=== PATIENT | female | born 1985 | race Caucasian/White ===

== ENCOUNTER 2020-10-04 16:02 | Emergency (ER) | payer OTHER, SELFPAY ==
[2020-10-04 16:26] VITALS: BP 113/70; PULSE 80; RESP 18; TEMP 37.1; O2SAT 100
--- NOTE | 2020-10-04 16:41 | ED.FEMALEGU ---
HPI - Female Genitourinary General Chief complaint: Urogenital-Female Stated complaint: abd pain Time Seen by Provider: 10/04/20 16:41 History of Present Illness HPI Narrative: Patient complains patient complains of burning with urination and frequency same as several prior urinary tract infections, this is been going on for 2 days No fever no vomiting no nausea no abdominal pain no pelvic pain or back pain Related Data Previous Rx's Medication Instructions Recorded nitrofurantoin monohyd/m-cryst 100 mg PO Q12H 5 Days #10 cap 10/04/20 [Macrobid] phenazopyridine [Pyridium] 200 mg PO TID PRN #6 tab 10/04/20 Allergies Allergy/AdvReac Type Severity Reaction Status Date / Time No Known Allergies Allergy Verified 10/04/20 16:25 [No Known Allergies*] Review of Systems Review of Systems: Positive for dysuria Negatives are no fever no chills no disease no weakness no fainting no feeling faint no neck pain no chest pain no abdominal pain no flank pain no back pain no nausea no vomiting no diarrhea Yes all other systems are reviewed and are negative [facility] Past Medical History Source: nursing notes reviewed Social History Social History Advance Directives: No Advance Directives Information Provided: No Physical Exam Vital Signs: Vital Signs: Last Vital Signs Temp 98.8 F 10/04/20 16:26 Pulse 80 10/04/20 16:26 Resp 18 10/04/20 16:26 BP 113/70 10/04/20 16:26 Pulse Ox 100 10/04/20 16:26 Body Mass Index 30.0 General appearance is no acute distress Head is normocephalic atraumatic Neck is supple Respiratory no distress Abdomen soft nontender The back no CVA tenderness Extremities no edema no rash Course Course Course Narrative: Patient in history and Physical make UTI very likely despite no conclusive evidence on urinalysis so patient was treated for probable urinary tract infection She is well appearing and discharged home MDM - Female Genitourinary Lab Data Attestation: I reviewed the patient's lab results. Labs: Lab Results 10/04/20 10/04/20 Range/Units 16:59 16:59 Urine Color YELLOW Urine Appearance HAZY Urine pH 6.0 (5.0-8.0) Ur Specific [place] 1.025 (1.005-1.025) Urine Protein TRACE (NEG-TRACE) MG/DL Urine Glucose (UA) NEG (NEG) MG/DL Urine Ketones NEG (NEG) MG/DL Urine Blood 2+ H (NEG) Urine Nitrite POS H (NEG) Ur Leukocyte Esterase TRACE H (NEG) Urine RBC 10-14 H (0) /HPF Urine WBC 1-4 (0-4) /HPF Ur Squamous Epith Cells 1+ /LPF Urine Bacteria 2+ /LPF Urine Test NEGATIVE (NEGATIVE) Discharge Plan Discharge Clinical Impression: Urinary tract infection Patient Disposition: Home, Self-Care Additional Instructions: Because her symptoms described a urinary tract infection we are treating with Macrobid antibiotic and Pyridium which relieves discomfort in the urine Return any time for fever vomiting or pain, any worse condition or any concerns Prescriptions: New phenazopyridine [Pyridium] 200 mg tablet 200 mg PO TID PRN (Reason: Discomfort with urination) Qty: 6 RF: 0 nitrofurantoin monohyd/m-cryst [Macrobid] 100 mg capsule 100 mg PO Q12H 5 Days Qty: 10 RF: 0 Stand Alone Forms: Work/School Release Interventions: ED Discharge Assessment Last Done: 10/04/20 18:37 Discharge Date/Time: 10/04/20 18:37
[2020-10-04 17:58] LABS: Glucose Urine UA NEG (NEG); Leukocyte Esterase Urine TRACE (NEG); Nitrite Urine POS (NEG); Specific Gravity - Urine 1.025 (1.005-1.025); UACC Culture Trigger YES; Urine Blood 2+ (NEG); Urine Ketones NEG (NEG); Urine Protein TRACE MG/DL (NEG-TRACE)
[2020-10-04 18:00] LABS: UPreg QC Valid YES; Urine Pregnancy NEGATIVE (NEGATIVE)
[2020-10-04 18:01] LABS: Appearance Urine HAZY; Color Urine YELLOW
[2020-10-04 18:11] LABS: Bacteria Urine 2+ /LPF; Squamous Epithelial Cell Urine 1+ /LPF
[2020-10-04] MEDS: Phenazopyridine HCL 200 MG TABLET PO (18:29)
[2020-10-04] MEDS: Nitrofurantoin Monohyd/M-Cryst 100 MG CAPSULE PO (18:29)
== END 2020-10-04 18:37 | disposition home or self-care (01) ==
PROVIDERS: Physician Assistant Medical; Emergency Provider Emergency Medicine Emergency Medical Services
DX: N39.0 Urinary tract infection, site not specified (principal); R35.0 Frequency of micturition; Z79.899 Other long term (current) drug therapy
CPT/HCPCS: 81001; 81003; 81025; 87086; 87088; 87186; 99284

== ENCOUNTER 2020-11-09 00:26 | Emergency (ER) | payer OTHER, SELFPAY ==
[2020-11-09 00:41] VITALS: BP 145/78; PULSE 98; RESP 18; TEMP 36.3; O2SAT 100
[2020-11-09 00:56] LABS: Glucose Urine UA NEG (NEG); Leukocyte Esterase Urine 2+ (NEG); Nitrite Urine NEG (NEG); Specific Gravity - Urine <= 1.005 (1.005-1.025); UACC Culture Trigger YES; Urine Blood 3+ (NEG); Urine Ketones NEG (NEG); Urine Protein TRACE MG/DL (NEG-TRACE)
[2020-11-09 00:57] LABS: Appearance Urine HAZY; Color Urine STRAW; UPreg QC Valid YES
[2020-11-09 00:58] LABS: Urine Pregnancy NEGATIVE (NEGATIVE)
[2020-11-09 01:03] LABS: Bacteria Urine 1+ /LPF; Squamous Epithelial Cell Urine 1+ /LPF; WBC Clumps Urine NOTED; WBC Urine 50-75 /HPF (0-4)
--- NOTE | 2020-11-09 01:16 | ED_ITS ---
HPI - Female Genitourinary General Chief complaint: Urogenital-Female Stated complaint: ?UTI Time Seen by Provider: 11/09/20 01:11 Source: patient Mode of arrival: ambulatory Limitations: no limitations History of Present Illness HPI Narrative: patient comes to emergency room complaining of UTI symptoms, patient complaining of dysuria and hematuria. Patient was seen here on October 04, given Macrobid, patient states that she took all the antibiotics, states that at the 3rd day of starting the antibiotic she starting feeling much better, but over the last 2 days she started having UTI symptoms all over again. Patient denies flank pain, no fever or chills. Patient states that she is prone to having UTIs. Related Data Previous Rx's Medication Instructions Recorded nitrofurantoin monohyd/m-cryst 100 mg PO Q12H 5 Days #10 cap 10/04/20 [Macrobid] phenazopyridine [Pyridium] 200 mg PO TID PRN #6 tab 10/04/20 levofloxacin 500 mg PO DAILY #6 tab 11/09/20 Allergies Allergy/AdvReac Type Severity Reaction Status Date / Time No Known Allergies Allergy Verified 10/04/20 16:25 [No Known Allergies*] Review of Systems Review of Systems: Constitutional : No Weight loss, No Fever, No Chills, No Night Sweats, No Fatigue, No Malaise ENT/Mouth : No Hearing loss, No Ear Pain, No Nasal Congestion, No Sinus Pain, No Hoarseness, No sore throat, No Rhinorrhea, No Swallowing Difficulty Eyes: No Eye Pain, No Swelling, No Redness, No Foreign Body, No Discharge, No Vision Changes Cardiovascular : No Chest Pain, No SOB, No Dyspnea on Exertion, No Orthopnea, No Edema, No Palpitations Respiratory : No Cough, No Sputum, No Wheezing, No Smoke Exposure, No Dyspnea Gastrointestinal : No Nausea, No Vomiting, No Diarrhea, No Constipation, No abdominal Pain, No Hematochezia, No Melena Genitourinary : no irregular bleeding, Complaining of dysuria, hematuria and urinary frequency, No Urinary Incontinence, No Urgency, No Flank Pain, No Urinary Flow Changes, No Hesitancy Musculoskeletal : No joint pain, No Myalgias, No Joint Swelling Skin : No Skin Lesions, No rash Neuro : No Weakness, No Numbness, No Paresthesias, No Loss of Consciousness, No Dizziness, No Headache Psych : No Anxiety/Panic, No Depression, No SI/HI/AH/VH, No Social Issues, Heme/Lymph: No Bruising, No Bleeding,No Lymphadenopathy Endocrine : No Polyuria, No Polydipsia, No Temperature Intolerance [facility] Past Medical History Medical History (Updated 11/09/20 @ 01:18 by Rox Mcneill MD) Frequent UTI Social History Social History Advance Directives: No Advance Directives Information Provided: No Patient : No Physical Exam Vital Signs: Vital Signs: Last Vital Signs Temp 97.4 F 11/09/20 00:41 Pulse 98 11/09/20 00:41 Resp 18 11/09/20 00:41 BP 145/78 H 11/09/20 00:41 Pulse Ox 100 11/09/20 00:41 Body Mass Index 30.0 Appearance: Alert. Oriented X3. No acute distress. Eyes: Pupils equal, round and reactive to light. ENT: Pharynx normal. Neck: Normal inspection. Neck supple. No lymph nodes noted. No crepitus CVS: Normal heart rate and rhythm. Pulses normal. Normal S1 and S2 Respiratory: No respiratory distress. Breath sounds normal. No Wheezing. No rales Abdomen: Soft and nontender. No rigidity. No distention. no flank pains Skin: Skin warm and dry. Normal skin color. Normal skin turgor. Extremities: No lower extremity edema. No lower extremity edema. No Lacerations. No Rash Neuro: Oriented X 3. No motor deficit. No sensory deficit. Moving all extermities. No slurred speech. Course Course Course Narrative: I discussed with the patient that if she keeps having recurrent UTIs, she needs a more thorough urologic evaluation, patient is to follow-up with her primary care physician. Also, another option is to have her primary care physician started her on long-term antibiotic to prevent UTI. At this time, patient's vitals within normal limits, sepsis not suspected. First dose of Levaquin given p.o. in the emergency room. MDM - Female Genitourinary Lab Data Labs: Lab Results 11/09/20 11/09/20 Range/Units 00:45 00:45 Urine Color STRAW Urine Appearance HAZY Urine pH 6.0 (5.0-8.0) Ur Specific [place] <= 1.005 (1.005-1.025) Urine Protein TRACE (NEG-TRACE) MG/DL Urine Glucose (UA) NEG (NEG) MG/DL Urine Ketones NEG (NEG) MG/DL Urine Blood 3+ H (NEG) Urine Nitrite NEG (NEG) Ur Leukocyte Esterase 2+ H (NEG) Urine RBC 5-9 H (0) /HPF Urine WBC 50-75 H (0-4) /HPF Urine WBC Clumps NOTED Ur Squamous Epith Cells 1+ /LPF Urine Bacteria 1+ /LPF Urine Test NEGATIVE (NEGATIVE) Discharge Plan Discharge Clinical Impression: Urinary tract infection Patient Disposition: Home, Self-Care Instructions: Urinary Tract Infection in Women (ED) Prescriptions: New levofloxacin 500 mg tablet 500 mg PO DAILY Qty: 6 RF: 0 No Action phenazopyridine [Pyridium] 200 mg tablet 200 mg PO TID PRN (Reason: Discomfort with urination) Qty: 6 RF: 0 nitrofurantoin monohyd/m-cryst [Macrobid] 100 mg capsule 100 mg PO Q12H 5 Days Qty: 10 RF: 0
[2020-11-09] MEDS: levoFLOXacin 500 MG TABLET PO (01:26)
== END 2020-11-09 01:38 | disposition home or self-care (01) ==
PROVIDERS: Emergency Provider Emergency Medicine; PCP Internal Medicine
DX: N39.0 Urinary tract infection, site not specified (principal)
CPT/HCPCS: 81001; 81003; 81025; 87086; 87088; 87186; 99283

== ENCOUNTER 2020-12-09 08:45 | Emergency (ER) | payer OTHER, SELFPAY ==
--- NOTE | ~2020-12-09 | CT_ITS ---
EXAMINATION: CT ABDOMEN AND PELVIS WITHOUT CONTRAST CLINICAL INFORMATION: Left flank pain COMPARISON: None TECHNIQUE: Multidetector volumetric imaging was performed from the superior aspect of the liver through the pubic symphysis. Sagittal and coronal reformatted images were obtained on the technologist's workstation. This CT examination was performed using dose optimization techniques as appropriate, variously including the following: *Automated exposure control *Adjustment of mA and/or kV according to patient size (this includes techniques or standardized protocols for targeted exams where dose is matched to indication/reason for exam; i.e. extremities or head) *Use of iterative reconstruction technique DLP: 537 mGy-cm FINDINGS: LUNG BASES: The visualized lung bases are unremarkable. LIVER, GALLBLADDER, AND BILIARY TREE: The liver is normal in size, shape, and attenuation. No focal hepatic lesion or biliary ductal dilatation is present. The gallbladder is unremarkable with no evidence of radiopaque gallstones, gallbladder wall thickening, or obvious pericholecystic inflammatory changes. PANCREAS: Unremarkable. SPLEEN: Within limits of normal size, 13.6 cm sagittal but only 8.5 cm vertical. Punctate calcified granuloma posterior spleen under 5 mm. ADRENAL GLANDS: Unremarkable. KIDNEYS AND URETERS: The right kidney is normal in size and parenchymal thickness. There is no right hydronephrosis, hydroureter, or perinephric stranding. The left kidney has duplicated collecting system with mild distention upper and lower pelvicalyceal system. The 2 ureters likely merge in the mid lumbar region. There is no visible left urinary tract calculus or perinephric stranding. BLADDER: Unremarkable. GASTROINTESTINAL TRACT: There is moderate stool in the colon. There is no bowel dilatation or focal inflammatory changes in the bowel or mesentery. The appendix is not visualized. Some fine surgical clips are seen at the inferior medial cecum suggesting prior appendectomy. There is no ascites or fluid collection. No pneumatosis or free air. ABDOMINAL WALL: No significant hernia is appreciated. LYMPH NODES: No lymphadenopathy. VASCULAR: Unremarkable. PELVIC VISCERA: Unremarkable. OSSEOUS STRUCTURES: Unremarkable. CT/CT abdomen pelvis wo con IMPRESSION: 1. 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 Mild fullness left urinary tract. No visible urinary tract calculi or obstructing mass. No perinephric stranding. Right kidney unremarkable. 2. Moderate stool in colon. No focal inflammatory changes. No ascites or fluid collection.
[2020-12-09 09:20] VITALS: BP 118/61; PULSE 78; RESP 18; TEMP 37.2; O2SAT 100; BMI 29.2
[2020-12-09 10:42] LABS: Glucose Urine UA NEG (NEG); Leukocyte Esterase Urine 3+ (NEG); Nitrite Urine NEG (NEG); UACC Culture Trigger YES; Urine Blood 2+ (NEG); Urine Ketones NEG (NEG); Urine Protein 1+ MG/DL (NEG-TRACE)
[2020-12-09 10:46] LABS: UPreg QC Valid YES; Urine Pregnancy NEGATIVE (NEGATIVE)
[2020-12-09 10:47] LABS: Appearance Urine HAZY; Color Urine YELLOW
--- NOTE | 2020-12-09 10:51 | ED_ITS ---
HPI - Back Pain/Injury General Chief Complaint: Back Pain/Injury Stated Complaint: problem urinating Source: patient Mode of arrival: ambulatory Limitations: no limitations History of Present Illness HPI Narrative: Patient presents to ED for left flank pain for the past 4 days. Patient states history of chronic UTI. Patient states no nausea, vomiting, fever, abdominal pain, or chills. Patient does admit to dysuria. Patient states no vaginal discharge, vaginal bleeding, or vaginal lesions. Related Data Previous Rx's Medication Instructions Recorded nitrofurantoin 100 mg PO Q12H 5 Days #10 cap 10/04/20 monohydrate/macrocrystals 100 mg capsule (Macrobid) phenazopyridine 200 mg tablet 200 mg PO TID PRN #6 tab 10/04/20 (Pyridium) levofloxacin 500 mg tablet 500 mg PO DAILY #6 tab 11/09/20 cefpodoxime 200 mg tablet 200 mg PO Q12H 10 Days #20 tab 12/09/20 naproxen 500 mg tablet 500 mg PO BID PRN #20 tab 12/09/20 Allergies Allergy/AdvReac Type Severity Reaction Status Date / Time No Known Allergies Allergy Verified 10/04/20 16:25 [No Known Allergies*] Review of Systems Review of Systems: Yes all other systems are reviewed and are negative Constitutional: Constitutional: Reports as per HPI and Reports no additional constitutional complaints Eyes: Eyes: Reports as per HPI and Reports no additional eye complaints ENT: Reports system reviewed and no additional complaints, except as documented and Reports as per HPI Cardiovascular: Cardiovascular: Reports as per HPI and Reports no additional cardiovascular complaints Respiratory: Respiratory: Reports as per HPI and Reports no additional respiratory complaints Gastrointestinal: Gastrointestinal: Reports as per HPI and Reports no additional gastrointestinal complaints Genitourinary: Genitourinary: Reports no additional female genitourinary complaints, Reports as per HPI and Reports dysuria Musculoskeletal: Musculoskeletal: Reports no additional musculoskeletal complaints and Reports as per HPI Comments: Left flank pain Neurologic: Reports system reviewed and no additional complaints, except as documented and Reports as per HPI Psychiatric: Psychiatric: Reports no additional psychiatric complaints and Reports as per HPI PMF Past Medical History Medical History (Updated 12/09/20 @ 12:38 by ANITHA Montes) Frequent UTI Social History Social History Advance Directives: Yes Advance Directives Information Provided: Yes Advance Directives on File: No Physical Exam Vital Signs: Vital Signs: Last Vital Signs Temp 98.7 F 12/09/20 12:13 Pulse 88 12/09/20 12:13 Resp 16 12/09/20 12:13 BP 133/70 12/09/20 12:13 Pulse Ox 100 12/09/20 12:13 Body Mass Index 29.2 Const: General: cooperative, healthy appearing, comfortable, no acute distress, well developed, alert, awake and Physically active Orientation/consciousness: patient oriented x3 HENMT: Head: Yes normal to inspection, Yes No palpable skull fracture present, Yes normocephalic and Yes atraumatic Eyes: General: appearance normal, both eyes and all related structures Neck: Neck: Yes normal visual inspection, Yes full ROM, Yes no lymphadenopathy, Yes no meningeal signs, Yes trachea midline, Yes supple and No tender Chest: Chest palpation & inspection: normal inspection of the chest and normal palpation of entire chest wall Resp: Effort & Inspection: normal respiratory effort and able to speak in complete sentences Auscultation: clear to auscultation bilaterally Cardio: Jugular venous distension: no JVD Heart sounds: S1 normal heart sound present and S2 normal heart sound present GI: Inspection: Yes normal to inspection and No abdominal wall ecchymosis Palpation (GI): Soft to palpation, not firm, nontender, no guarding and not rigid : General: Yes CVA tenderness (Left) Back/Spine/Pelvis: Back: CVA tenderness (Left) and No back tenderness Skin: General skin exam: no rashes or lesions noted and elasticity normal Neuro: General: patient oriented x3, gait normal, no meningeal signs and CN's II-XI intact bilaterally Cranial nerves: Yes CN's II-XII intact bilaterally Extrem: General: Yes normal to inspection and Yes full ROM Psych: Appearance: grossly normal, well kempt and not disheveled Course Course Course Narrative: UA will be sent. Reevaluation(s) Reevaluation #1: Urine shows blood and UTI. Will send for CT scan to rule out kidney stones. Time: 22:28 Reevaluation #2: CT scan came back negative for kidney stones or perinephric stranding. Patient will be discharged with antibiotics per Time: 12:35 MDM - Back Pain/Injury MDM Narrative Medical decision making narrative: UTI Lab Data Labs: Lab Results 08/06/21 08/06/21 Range/Units 10:28 10:28 Urine Color YELLOW Urine Appearance HAZY Urine pH 6.0 (5.0-8.0) Ur Specific [place] 1.010 (1.005-1.025) Urine Protein 1+ H (NEG-TRACE) MG/DL Urine Glucose (UA) NEG (NEG) MG/DL Urine Ketones NEG (NEG) MG/DL Urine Blood 2+ H (NEG) Urine Nitrite NEG (NEG) Ur Leukocyte Esterase 3+ H (NEG) Urine RBC 1-4 (0) /HPF Urine WBC TNTC H (0-4) /HPF Urine WBC Clumps NOTED Ur Squamous Epith Cells TRACE /LPF Urine Bacteria TRACE /LPF Urine Test NEGATIVE (NEGATIVE) Discharge Plan Discharge Clinical Impression: UTI (urinary tract infection) Patient Disposition: Home, Self-Care Instructions: Urinary Tract Infection in Women (ED) Additional Instructions: Higgins orina result? positiva para angelica infecci?n. Higgins tomograf?a computarizada result? negativa para c?lculos renales. Ser? dado de kristine con antibi?ticos. Regrese al servicio de urgencias de inmediato si tiene dolor abdominal, n?useas, v?mitos, fiebre, escalofr?os, empeoramiento del dolor en el costado, disuria, hematuria, sangrado vaginal, flujo vaginal, lesiones vaginales o cualquier otro s?ntoma preocupante. Sindy un seguimiento con higgins proveedor de atenci?n primaria. Prescriptions: New cefpodoxime 200 mg tablet 200 mg PO Q12H 10 Days Qty: 20 RF: 0 naproxen 500 mg tablet 500 mg PO BID PRN (Reason: pain) Qty: 20 RF: 0 No Action phenazopyridine [Pyridium] 200 mg tablet 200 mg PO TID PRN (Reason: Discomfort with urination) Qty: 6 RF: 0 nitrofurantoin monohyd/m-cryst [Macrobid] 100 mg capsule 100 mg PO Q12H 5 Days Qty: 10 RF: 0 levofloxacin 500 mg tablet 500 mg PO DAILY Qty: 6 RF: 0 Stand Alone Forms: Work/School Release Discharge Date/Time: 12/09/20 13:03 Print Language: Kinyarwanda
[2020-12-09 10:56] LABS: Bacteria Urine TRACE /LPF; Squamous Epithelial Cell Urine TRACE /LPF; UACC CULT YES; WBC Clumps Urine NOTED; WBC Urine TNTC /HPF (0-4)
[2020-12-09 12:13] VITALS: BP 133/70; PULSE 88; RESP 16; TEMP 37.1; O2SAT 100
== END 2020-12-09 13:03 | disposition home or self-care (01) ==
PROVIDERS: Emergency Provider Emergency Medicine Emergency Medical Services
DX: N39.0 Urinary tract infection, site not specified (principal)
CPT/HCPCS: 74176; 81001; 81025; 87086; 87088; 87186; 99284

== ENCOUNTER 2021-04-30 15:39 | Emergency (ER) | payer OTHER, SELFPAY ==
[2021-04-30 19:28] VITALS: BP 127/75; PULSE 107; RESP 18; TEMP 37; O2SAT 99
[2021-04-30 20:00] LABS: COVID-19 Test Positive (Negative); IDNOW Serial# 9DD0AD1C
--- NOTE | 2021-04-30 23:03 | ED_ITS ---
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 She denies any recent travel. Related Data Previous Rx's Medication Instructions Recorded nitrofurantoin 100 mg PO Q12H 5 Days #10 cap 10/04/20 monohydrate/macrocrystals 100 mg capsule (Macrobid) phenazopyridine 200 mg tablet 200 mg PO TID PRN #6 tab 10/04/20 (Pyridium) levofloxacin 500 mg tablet 500 mg PO DAILY #6 tab 11/09/20 cefpodoxime 200 mg tablet 200 mg PO Q12H 10 Days #20 tab 12/09/20 naproxen 500 mg tablet 500 mg PO BID PRN #20 tab 12/09/20 Allergies Allergy/AdvReac Type Severity Reaction Status Date / Time No Known Allergies Allergy Verified 10/04/20 16:25 [No Known Allergies*] Review of Systems Review of Systems: Pertinent positives and negatives as stated in HPI 10 point review systems otherwise negative. PMFSH Past Medical History Source: nursing notes reviewed Medical History Frequent UTI Social History Social History Advance Directives: No Advance Directives Information Provided: No Patient : No Physical Exam Vital Signs: Vital Signs: Last Vital Signs Temp 98.6 F 04/30/21 19:28 Pulse 107 H 04/30/21 19:28 Resp 18 04/30/21 19:28 BP 127/75 04/30/21 19:28 Pulse Ox 99 04/30/21 19:28 BMI result Body Mass Index 30.0 VITAL SIGNS: Reviewed. GENERAL: Well developed, well nourished, in no acute distress. HEAD: Normocephalic/atraumatic EYES: PERRLA, EOMI OROPHARYNX: no oral lesions noted, posterior pharynx clear and non-erythematous without noted tonsillar enlargement/erythema/exudates NECK: Supple, no adenopathy LUNGS: No audible wheeze, no tachypnea, no increased work of breathing. SpO2<99> CARDIOVASCULAR: Regular rate and rhythm without noted murmurs ABDOMEN: Soft, non-tender, non-distended with bowel sounds SKIN: Inspection of the skin reveals no rashes NEUROLOGIC: Alert and oriented x 4. Strength and sensation to light touch were grossly intact x 4. Course Course Course Narrative: 36-year-old female with history and clinical presentation consistent with viral syndrome and on review of investigations is noted be COVID-19 positive. Patient is afebrile, not tachypneic nor is she tachycardic and is oxygenating well on room air. She is otherwise discharged home and given strict instructions on isolation protocol. Medical Decision Making Lab Data Labs: Lab Results 04/30/21 Range/Units 19:37 COVID-19 (SLIM) Positive A (Negative) COVID-19 Clin Com See Note Discharge Plan Discharge Clinical Impression: Viral syndrome, Lab test positive for detection of COVID-19 virus Patient Disposition: Home, Self-Care Instructions: Viral Syndrome (ED), COVID-19 (Coronavirus Disease 2019) (ED) Additional Instructions: 1. Incrementar la hidrataci?n de l?quidos, especialmente con agua. 2. Tylenol 1000 mg, por v?a oral, cada 6 horas seg?n sea necesario para el control del dolor, darinel corporales, temperaturas superiores a 100,4?C. No exceda los 4000 mg en 24 horas. 3. Ibuprofeno 400 mg, por v?a oral con leche o comida, cada 6 horas seg?n sea necesario para el control del dolor, darinel corporales, darinel de paloma, temperaturas superiores a 100,4?C. 4. Sindy un seguimiento con higgins proveedor de atenci?n primaria en los pr?ximos 1-2 d?as a kendall?s de angelica moon de telemedicina para angelica reevaluaci?n y un manejo ambulatorio adicional. Debe aislar arabella 10 d?as y seguir todas las pautas estatales y federales para ser COVID-19 positivo. Adem?s, debe notificar a todos los contactos cercanos arabella los ?ltimos 3 d?as. Regrese a la ewa de emergencias por un empeoramiento jacob de los s?ntomas. Prescriptions: No Action phenazopyridine [Pyridium] 200 mg tablet 200 mg PO TID PRN (Reason: Discomfort with urination) Qty: 6 RF: 0 nitrofurantoin monohyd/m-cryst [Macrobid] 100 mg capsule 100 mg PO Q12H 5 Days Qty: 10 RF: 0 levofloxacin 500 mg tablet 500 mg PO DAILY Qty: 6 RF: 0 cefpodoxime 200 mg tablet 200 mg PO Q12H 10 Days Qty: 20 RF: 0 naproxen 500 mg tablet 500 mg PO BID PRN (Reason: pain) Qty: 20 RF: 0 Print Language: Uzbek
[2021-04-30 23:41] VITALS: BP 122/81; PULSE 86; RESP 16; TEMP 36.1; O2SAT 99
== END 2021-04-30 23:55 | disposition home or self-care (01) ==
PROVIDERS: Emergency Provider Student in an Organized Health Care Education/Training Program
DX: U07.1 COVID-19 (principal); B34.9 Viral infection, unspecified
CPT/HCPCS: 36415; 87635; 99283

== ENCOUNTER 2023-07-31 11:03 | Emergency (ER) | payer OTHER, SELFPAY ==
[2023-07-31 11:09] VITALS: BP 136/89; PULSE 87; RESP 18; TEMP 37; O2SAT 99; BMI 33.1
--- NOTE | 2023-07-31 11:11 | ED.SKABFB ---
HPI - Skin/Abscess/Foreign Bdy General Chief complaint: Skin/Abscess/Foreign Body Stated complaint: Itchy hands 2 years Time Seen by Provider: 07/31/23 14:34 Source: patient, RN notes reviewed and interactive video technician Mode of arrival: ambulatory Limitations: language barrier History of Present Illness HPI narrative: This is a 38-year-old bahraini speaking female, with no known medical problems, presented to the emergency department with complaints of itchiness to bilateral hands for the last 2 years. She initially attributed this to gloves she was wearing however after changing her gloves, she has not noticed any improvement. Denies any fevers, chills, chest pain,shortness of breath, abdominal pain, nausea, vomiting or diarrhea. She has been applying aquaphor to her hands without any relief. No new sexual partners. No other complaints or concerns at this time. complaint: rash Onset (ago): year(s) Location: L hand and R hand Severity: mild Quality: pruritic Pain Consistency: constant Relieving factors: none Exacerbating factors: none Context: none Associated symptoms: denies other symptoms Treatments prior to arrival: none Related Data Previous Rx's Medication Instructions Recorded nitrofurantoin 100 mg PO Q12H 5 days #10 caps 10/04/20 monohydrate/macrocrystals 100 mg capsule (Macrobid) phenazopyridine 200 mg tablet 200 mg PO TID PRN Discomfort with 10/04/20 (Pyridium) urination 6 doses #6 tabs levofloxacin 500 mg tablet 500 mg PO DAILY #6 tabs 11/09/20 cefpodoxime 200 mg tablet 200 mg PO Q12H 10 days #20 tabs 12/09/20 naproxen 500 mg tablet 500 mg PO BID PRN pain #20 tabs 12/09/20 hydrocortisone 2.5 % topical cream 1 appl topical BID PRN itching 2 07/31/23 weeks #28 grams Allergies Allergy/AdvReac Type Severity Reaction Status Date / Time No Known Allergies Allergy Verified 10/04/20 16:25 [No Known Allergies*] Review of Systems Review of Systems: Yes all other systems are reviewed and are negative PMFSH Past Medical History Medical History Frequent UTI Social History Social History Advance Directives: No Advance Directives Information Provided: No Physical Exam Vital Signs: Vital Signs: Last Vital Signs Temp 98.6 F 07/31/23 15:35 Pulse 87 07/31/23 15:35 Resp 18 07/31/23 15:35 BP 136/89 07/31/23 15:35 Pulse Ox 99 07/31/23 15:35 O2 Del Method Room Air 07/31/23 15:35 BMI result Body Mass Index 33.1 Const: Other: General: Awake, alert, and oriented X3. No acute distress. HEENT: Normal inspection CVS: Normal heart rate and rhythm. Pulses normal. Respiratory: No respiratory distress Skin: Bilateral palms with papular/flesh colored and crusted lesions noted, no drainage, erythema or warmth. Full ROM of the digits. Extremities: Normal to inspection Neuro: Oriented X 3. No motor deficit. No sensory deficit. Course Course Course Narrative: This is an RME: Additional HPI, ROS, PE not included below will be deferred to primary provider. This is a 28-zaqi-vrr-bahraini-speaking female presenting to the ER with complaints of bilateral hand itchiness and rash x 2 years. She thought it was attributed to gloves she was wearing at work but switched gloves without relief. Bilateral palmar rash noted with crusting. Plan: Labs, further ER eval needed. Medical Decision Making Medical Decision Making [facility] Narrative: 38 y/o F presenting to the ER with complaints of bilateral hand rash x 2 years. On arrival, vital signs stable. Reporting itchy rash noted to palms with crustinig and lesions noted. DDX including mosiac warts, syphilis , cellulitis, contact dermatitis. Given duratiion unlikely infectious in etiology. Labs were obtained to r/o hepatic/biliary etiology vs syphilis. Labs reassuring, physical exam finding concerning for mosiac warts. Pt d/c on cortisone, and given referral to derm. She understands return precautions, stable for d/c. Differential Diagnosis Differential Diagnoses: The differential diagnosis associated with the presentation includes see above Lab Data [facility] Lab Attestation statement: I reviewed the patient's lab results. No leukocytosis, stable H&H, nonreactive RPR. 07/31/23 11:19 07/31/23 11:19 Labs: Lab Results 07/31/23 Range/Units 11:19 WBC 8.3 (4.8-10.8) X10*3/uL RBC 4.57 (4.20-5.50) X10*6/uL Hgb 13.5 (12.0-16.0) g/dl Hct 39.1 (37.0-47.0) % MCV 85.6 (80.0-98.0) fL MCH 29.5 (27.0-33.0) pg MCHC 34.5 (31.0-35.0) g/dl RDW 12.2 (11.0-16.0) % Plt Count 331 (160-400) X10*3/uL MPV 9.7 (9.4-12.3) fL Immature Gran % (Auto) 0.2 (0.0-0.4) % Neut % (Auto) 62.2 (45-73) % Lymph % (Auto) 30.0 (20-40) % Screven % (Auto) 6.0 (2-11) % Eos % (Auto) 1.2 (0-4) % Baso % (Auto) 0.4 (0-2) % Lymph # (Auto) 2.5 (1.2-4.9) X10*3/uL Screven # (Auto) 0.5 (0.1-1.2) X10*3/uL Eos # (Auto) 0.1 (0.0-0.4) X10*3/uL Baso # (Auto) 0.0 (0.0-0.2) X10*3/uL Abs Immat Gran (auto) 0.02 (0.00-0.03) X10*3/uL Absolute Neuts (auto) 5.2 (2.0-8.3) x10*3/uL Absolute Nucleated RBC 0.000 (0.0-0.012) X10*3/uL Nucleated RBC % (auto) 0.0 (0.0-0.2) /100WBC Sodium 138 (135-145) mmol/L Potassium 3.8 (3.3-5.1) mmol/L Chloride 106 (96-108) mmol/L Carbon Dioxide 24 (22-29) mmol/L Anion Gap 12 (12-20) BUN 10 (9-16) mg/dL Creatinine 0.75 (0.5-1.4) mg/dL Estim Creat Clear Calc 97.0 Estimated GFR > 60 Random Glucose 135 H (60-115) mg/dL Calcium 9.2 (8.4-10.2) mg/dL Total Bilirubin 0.4 (0.0-1.0) mg/dL AST 19 (5-31) U/L ALT 16 (0-31) U/L Alkaline Phosphatase 83 (39-117) U/L Total Protein 8.0 (6.5-8.0) g/dL Albumin 4.2 (3.5-5.0) g/dL T.pallidum Ab (EIA) Nonreactive (Nonreactive) Discharge Plan Discharge Clinical Impression: Mosaic wart, Rash Patient Disposition: Home, Self-Care Instructions: Acute Rash (ED) Additional Instructions: Your seen in the emergency department due to a rash You have warts on her hands causing you to have the symptoms. May trial [id number] wart removal cream. I am also prescribing you hydrocortisone cream. You need to follow-up with dermatology for further management of your symptoms. If any new or worsening symptoms occur including but not limited to chest pain, shortness breath, worsening redness, swelling, fevers or chills, please return for re-evaluation. Prescriptions: New hydrocortisone 2.5 % cream 1 appl topical BID PRN (Reason: itching) 14 Days Qty: 28 0RF No Action phenazopyridine [Pyridium] 200 mg tablet 200 mg PO TID PRN (Reason: Discomfort with urination) Qty: 6 0RF nitrofurantoin monohyd/m-cryst [Macrobid] 100 mg capsule 100 mg PO Q12H 5 Days Qty: 10 0RF Rx Instructions: must administer with a meal/food levofloxacin 500 mg tablet 500 mg PO DAILY Qty: 6 0RF cefpodoxime 200 mg tablet 200 mg PO Q12H 10 Days Qty: 20 0RF Rx Instructions: must administer with a meal/food naproxen 500 mg tablet 500 mg PO BID PRN (Reason: pain) Qty: 20 0RF Referrals: Tammie Chand MD [Physician] - Violet Bowens PA [Physician Blanking Press Operator] - Stand Alone Forms: Work/School Release Interventions: ED Discharge Assessment Last Done: 07/31/23 15:35 Discharge Date/Time: 07/31/23 15:39
[2023-07-31 11:21] LABS: MANUAL DIFF FLAG NO
[2023-07-31 11:24] LABS: Basophils Percent Auto 0.4 % (0-2); Eosinophils Absolute Auto 0.1 X10*3/uL (0.0-0.4); Eosinophils Percent Auto 1.2 % (0-4); Hematocrit 39.1 % (37.0-47.0); Hemoglobin 13.5 g/dl (12.0-16.0); Imm Gran Abs Auto 0.02 X10*3/uL (0.00-0.03); Imm Gran Pct Auto 0.2 % (0.0-0.4); Lymphocytes Absolute Auto 2.5 X10*3/uL (1.2-4.9); Mean Corpuscular HGB Conc 34.5 g/dl (31.0-35.0); Mean Corpuscular Hemoglobin 29.5 pg (27.0-33.0); Mean Corpuscular Volume 85.6 fL (80.0-98.0); Mean Platelet Volume 9.7 fL (9.4-12.3); Monocytes Absolute Auto 0.5 X10*3/uL (0.1-1.2); Neutrophils Absolute Auto 5.2 x10*3/uL (2.0-8.3); Neutrophils Percent Auto 62.2 % (45-73); Platelet Count 331 X10*3/uL (160-400); Red Blood Count 4.57 X10*6/uL (4.20-5.50); Red Cell Distribution Width 12.2 % (11.0-16.0); White Blood Count 8.3 X10*3/uL (4.8-10.8)
[2023-07-31 11:37] LABS: Alanine Aminotransferase 16 U/L (0-31); Albumin Level 4.2 g/dL (3.5-5.0); Alkaline Phosphatase 83 U/L (39-117); Anion Gap 12 (12-20); Aspartate Amino Transferase 19 U/L (5-31); Bilirubin Total 0.4 mg/dL (0.0-1.0); Blood Urea Nitrogen 10 mg/dL (9-16); Calcium 9.2 mg/dL (8.4-10.2); Carbon Dioxide 24 mmol/L (22-29); Chloride 106 mmol/L (96-108); Estimated Glomerular Filt Rate > 60; Glucose Random 135 mg/dL (60-115); Potassium 3.8 mmol/L (3.3-5.1); Sodium 138 mmol/L (135-145)
[2023-07-31 12:09] LABS: Syphilis Screen Nonreactive (Nonreactive)
[2023-07-31 15:35] VITALS: BP 136/89; PULSE 87; RESP 18; TEMP 37; O2SAT 99
== END 2023-07-31 15:39 | disposition home or self-care (01) ==
PROVIDERS: Physician Assistant; Physician Assistant Medical; Emergency Provider Emergency Medicine Emergency Medical Services
DX: B07.8 Other viral warts (principal); L29.9 Pruritus, unspecified; R21 Rash and other nonspecific skin eruption
CPT/HCPCS: 36415; 80053; 85025; 86780; 99283

== ENCOUNTER 2025-02-09 08:55 | Outpatient (REF) | payer MEDICAID, SELFPAY ==
--- OUTSIDE RECORDS SUMMARY | 2025-02-04 14:00 | XMS_ITS | Encounter Summary ---
Author Organization [employer] Address [address] [place] [address] Care Team Providers Care Research Investigator Name Role Phone Jessica Barger MD Primary Care Provider + Reason for Visit * Reason Comments Shoulder Pain Encounter Details Date Type Department Care Team (Latest Contact Info) Description 02/04/2025 2:00 PM EDT Office Visit [facility] [address] [place], [place] [phone] Yessica Tatum FNP [address] [place], [place] [phone] Musculoskeletal pain (Primary Dx) Social History Tobacco Use Types Packs/Day Years Used Date Smoking Tobacco: Never Passive Smoke Exposure: Never Smokeless Tobacco: Never Tobacco Cessation:Counseling Given: Not Answered Alcohol Use Standard Drinks/Week Comments Yes 0 (1 standard drink = 0.6 oz pur e alcohol) Alcohol Answer Date Recorded How often do you have a drink containing alcohol ? 2 12/14/2024 How many drinks containing a lcohol do you have on a typical day when you are drinking? 4 12/14/2024 Frequency of Binge Drinking Not on file 12/04 Housing Stability Answer Date Recorded What is your housing situation today? I have [place]aac rivera 12/14/[address] you li ve. Do you have problems with any of the following? Mold;I am not sure 12/14/2024 Food Insecurity Answer Date Recorded Within the past 12 months, y ou worried that your food would run out before you got money to buy more: Never True 12/14/2024 Within the past 12 months,th e food you bought just didn't last and you didn't have enough money to get more: Never True 03/2025 Transportation Answer Date Recorded In the past 12 months, has l ack of transportation kept you from medical appts, meetings, work or from getting things needed for daily living? No 12/14/2024 Utilities Answer Date Recorded In the past 12 months, has t he electric, gas, oil or water company threatened to shut off services in your home? No 12/14/2024 Depression Answer Date Recorded Patient Health Questionnaire-2 Score 0 12/14/2024 Internet Access Answer Date Recorded Internet Access Q1 Yes 12/14/2024 Internet Access Q2 Not on file 12/14/2024 Comments Unknown Sex and Gender Information Value Date Recorded Sex Assigned at Female 02/27/2023 3:18 PM EDT Legal Sex Female 4:17 PM EDT Gender Identity Female 02/27/2023 3:18 PM EDT Sexual Orientation Don't know 02/27/2023 3: 18 PM EDT documented as of this encounter Last Filed Vital Signs Vital Sign Reading Time Taken Comments Blood Pressure 130/88 02/04/2025 2:00 PM EDT Pulse 84 02/04/2025 2:00 PM EDT Temperature 36.7 C (98 F) 02/04/2025 2:00 PM EDT Respiratory Rate 16 02/04/2025 2:00 PM EDT Oxygen Saturation 100% 02/04/2025 2:00 PM EDT Inhaled Oxygen Concentration - - Weight 83.9 kg (185 lb) 02/04/2025 2:00 PM EDT Height - - Body Mass Index 31.76 12/14/2024 1:31 PM EDT documented in this encounter Progress Notes * STEPHANIE Mcwilliams - 02/04/2025 2:00 PM EDT HPI Dulce Rodriguez is a 39 y.o. female who [facility] for a sick visit-complaint of Left Shoulder Blade Pain - Pain localized to the left shoulder blade area - Onset on Sunday, February 02, 2025, after lifting a box with sudden force - Pain worsens with bending down - Persistent pain since onset - Denies fever, erythema, or warmth - Denies using any medication Problem List[1] Review of Systems Constitutional: Negative for chills, fatigue and fever. Respiratory: Negative for cough, chest tightness, shortness of breath and wheezing. Cardiovascular: Negative for chest pain and palpitations. Musculoskeletal: Positive for myalgias. Negative for joint swelling, neck pain and neck stiffness. Neurological: Negative for dizziness, weakness, numbness and headaches. Visit Vitals BP 130/88 (BP Location: Left arm, Patient Position: Sitting, BP Cuff Size: Adult) Pulse 84 Temp 98 ??F (36.7 ??C) (Temporal) Resp 16 Wt 185 lb (83.9 kg) SpO2 100% BMI 31.76 kg/m?? Smoking Status Never BSA 1.95 m?? Physical Exam Vitals reviewed. Constitutional: Appearance: Normal appearance. HENT: Head: Atraumatic. Cardiovascular: Rate and Rhythm: Normal rate and regular rhythm. Pulses: Normal pulses. Heart sounds: Normal heart sounds. No murmur heard. Pulmonary: Effort: Pulmonary effort is normal. Breath sounds: Normal breath sounds. No wheezing. Musculoskeletal: General: Tenderness present. No swelling or signs of injury. Comments: Tenderness upon palpation of the left scapular region. Neurological: Mental Status: She is alert and oriented to person, place, and time. Psychiatric: Mood and Affect: Mood normal. Behavior: Behavior normal. Visit Diagnoses Musculoskeletal pain - Primary - Musculoskeletal pain in left shoulder blade region - Muscular pain likely secondary to acute strain from lifting incident on February 03, 2025. - Prescribed naproxen for 5 days, one tablet in the morning and one in the evening with food, then use as needed. Recommended stretching exercises for pain relief and muscle inflammation. Advised rest for one day (Saturday, February 05, 2025) before returning to work. If pain persists, follow up with PCP or return for further evaluation. Offered acupuncture as an alternative if naproxen is not effective. - Risks and side effects: Advised against naproxen use during ; confirmed not . Relevant Medications naproxen (Naprosyn) 500 MG tablet This note was drafted using Ambient (AI) technology. The patient/patient's guardian has been informed and has consented to the use of this technology: Yes [1] Patient Active Problem List Diagnosis Class 1 obesity due to excess calories without serious comorbidity with body mass index (BMI) of 31.0 to 31.9 in adult Dyshidrotic eczema Halitosis Preventative health care documented in this encounter Plan of Treatment Upcoming Encounters Date Type Department Care Team (Late st Contact Info) Description 02/22/2025 3:15 PM EDT Office Visit [facility] [address] [place] [address] Jessica Barger MD [address] [place] [phone] documented as of this encounter Visit Diagnoses Diagnosis Musculoskeletal pain- Primary Unspecified myalgia and myositis documented in this encounter Care Teams Research Investigator Relationship Specialty Start Date End Date Jessica Barger MD [address] [place] [address] [phone] PCP - General Internal Medicine 12/14/24 documented as of this encounter
--- OUTSIDE RECORDS SUMMARY | 2025-02-09 09:44 | XMS_ITS | Encounter Summary ---
Author Organization [employer] Address [address] [place] [address] Care Team Providers Care Distance Learning Program Coordinator Name Role Phone Jessica Barger MD Primary Care Provider + Encounter Details Date Type Department Care Team (Latest Contact Info) Description 02/04/2025 Travel Social History Tobacco Use Types Packs/Day Years Used Date Smoking Tobacco: Never Passive Smoke Exposure: Never Smokeless Tobacco: Never Alcohol Use Standard Drinks/Week Comments Yes 0 [...] PM EDT documented as of this encounter Plan of Treatment Upcoming Encounters Date Type Department Care Team (Late st Contact Info) Description 02/22/2025 3:15 PM EDT Office Visit [facility] [address] [place] [address] Jessica Barger MD [address] [place] [phone] documented as of this encounter Visit Diagnoses Not on filedocumented in this encounter Care Teams Distance Learning Program Coordinator Relationship Specialty Start Date End Date Jessica Barger MD [address] [place] [phone] PCP - General Internal Medicine 12/14/24 documented as of this encounter
--- OUTSIDE RECORDS SUMMARY | 2025-02-09 09:44 | XMS_ITS | Clinical Summary ---
Author Organization [employer] Address [address] [facility] [address] [place] [address] Care Team Providers Care Salesperson [employer] Name Role Phone Jessica Barger MD Primary Care Provider + Allergies Active Allergy Reactions Criticality Noted Date Comments Latex Rash Low 12/14/2024 Medications hydrocortisone 2.5 % cream Apply pea sized amount to skin bid for 1 week 15 g 3 Active betamethasone valerate (Valisone) 0.1 % ointment Apply topically if needed in the morning and at bedtime (dryness). 45 g 5 5 Active fluticasone (Flonase) 50 MCG/ACT nasal spray Administer 1-2 sprays into each nostril 2 times daily. Shake gently. Before first use, prime pump. After use, clean tip and replace cap. 16 g 1 5 Active naproxen (Naprosyn) 500 MG tabletIndicatio ns:Musculoskele michele pain Take 1 tab bid x5 days then PRN as needed 20 tablet 5 Active Active Problems Problem Noted Date Diagnosed Date Dyshidrotic eczema 12/14/2024 Assessment & Plan (12/14/2024 2:29 PM EDT): On hands, advised to use a nonallergenic soap, avoid contact with latex swabs (work letter given to patient) and keep a symptom diary. Use betamethasone ointment twice daily and follow-up with me in 4 weeks Halitosis 12/14/2024 Assessment & Plan (12/14/2024 2:29 PM EDT): Advised to quit alcohol, use Flonase daily for nasal congestion Keep up to date with dental clinic Preventative health care 12/14/2024 Assessment & Plan (12/14/2024 2:30 PM EDT): Will request Pap smear at next visit Order labs Declined STI testing today, will follow-up at next visit Class 1 obesity due to exces s calories without serious comorbidity with body mass index (BMI) of 31.0 to 31.9 in adult 12/10/2024 Assessment & Plan (12/14/2024 2:28 PM EDT): Discussed re weight reduction options including exercise, life style modifications, diet. Recommended to decrease soda and sugary beverage consumption, increase protein intake with meals (at least 1 portion of protein with each meal) to assist with satiety, increase dietary fiber Recommended at least 150 min/week of moderate intensity exercise. FU at next visit w labs Resolved Problems Problem Noted Date Diagnosed Date Resolved Date Class 2 obesity 12/10/2024 12/14/2024 Disease due to severe acute respiratory syndrome coronavirus 2 (SARS-CoV-2) 05/22/202412/04 Overview (12/10/2024): Problem added by Discern Expert Encounters Date Type Department Care Team Description 02/04/2025 2:00 PM EDT Office Visit [facility] [address] [place] [address] Yessica Tatum FNP Musculoskeletal pain (Primary Dx) 02/04/2025 Travel 01/06/2025 Telephone [facility] [address] [place], [place] [phone] Violet Romo OD 12/14/2024 1:30 PM EDT Office Visit [facility] [address] [place], [place] [phone] Jessica Barger MD Dyshidrotic eczema (Primary Dx); Class 1 obesity due to excess calories without serious comorbidity with body mass index (BMI) of 31.0 to 31.9 in adult; Halitosis; Preventative health care; Dietary counseling; Exercise counseling 12/14/2024 Travel 12/10/2024 Telephone [facility] [address] [place] [address] [phone] Jessica Barger MD chart prep 12/02/2024 Patient Outreach [facility] [address] [place] [address] Jessica Barger MD Pre-visit Planning ((Unable to reach for PVP screening, LVM) to be completed in office ) from Last 3 Months Family History Medical History Relation Name Comments Diabetes Father HTN, A-fib, CVA Mother Relation Name Status Comments Father Alive Mother Social History Tobacco Use Types Packs/Day Years [...] Don't know 02/27/2023 3: 18 PM EDT Last Filed Vital Signs Vital Sign Reading Time Taken Comments Blood Pressure 130/88 02/04/2025 2:00 PM EDT Pulse 84 02/04/2025 2:00 PM EDT Temperature 36.7 C (98 F) 02/04/2025 2:00 PM EDT Respiratory Rate 16 02/04/2025 2:00 PM EDT Oxygen Saturation 100% 02/04/2025 2:00 PM EDT Inhaled Oxygen Concentration - - Weight 83.9 kg (185 lb) 02/04/2025 2:00 PM EDT Height 162.6 cm (5' 4 ) 12/14/2024 1:31 PM EDT Body Mass Index 31.76 12/14/2024 1:31 PM EDT Plan of Treatment Upcoming Encounters Date Type Department Care Team (Late st Contact Info) Description 02/22/2025 3:15 PM EDT Office Visit [facility] [address] [place] [address] Jessica Barger MD [address] [place], [place] [phone] Health Maintenance Due Date Last Done Comments HIV Screening 1985 Lipid Panel 1985 Family Planning (PISQ) 2000 HPV Vaccines (1 - 3-dose series) 2000 Hepatitis C Screening 2003 DTaP/Tdap/Td Vaccines (1 - Tdap) 2004 Hepatitis B Vaccines (1 of 3 - 19+ 3-dose series) 2004 Pap Smear 2006 Cervical Cancer Screening 2015 HPV/Cotest 2015 COVID-19 Vaccine (2 - 2024-2 6 season) 2025 11/02/2021 Influenza Vaccine (#1) 2025 Alcohol/Substance Use Screening 12/14/2025 12/14/2024 Depression Screening 12/14/2025 12/14/2024, 12/14/2024 Disability Screening 12/14/2025 12/14/2024 SDOH Screening 12/14/2025 12/14/2024 Tobacco Screening 02/04/2026 02/04/2025 Zoster Vaccines (1 of 2) 2035 RSV Patients and Patients Aged 60 years or older (1 - 1-dose 75+ series) 2060 HIB Vaccines Aged Out No longer eligi ble based on patient's age to complete this topic Hepatitis A Vaccines Aged Out No long er eligible based on patient's age to complete this topic IPV Vaccines Aged Out No longer eligi ble based on patient's age to complete this topic Meningococcal B Vaccine Aged Out No l onger eligible based on patient's age to complete this topic Meningococcal Vaccine Aged Out No maciej qiana eligible based on patient's age to complete this topic Pneumococcal Vaccine: Pediatrics (0 to 5 Years) and At-Risk Patients (6 to 49) Years Aged Out No longer eligible b ased on patient's age to complete this topic RSV under 20 months Aged Out No longe r eligible based on patient's age to complete this topic Rotavirus Vaccines Aged Out No longer eligible based on patient's age to complete this topic Insurance Endurance [employer] Care Teams Salesperson [employer] Relationship Specialty Start Date End Date Jessica Barger MD [address] [place] [phone] PCP - General Internal Medicine 12/14/24
[2025-02-09 11:13] LABS: MANUAL DIFF FLAG NO
[2025-02-09 11:32] LABS: Hematocrit 34.8 % (37.0-47.0); Hemoglobin 11.9 g/dl (12.0-16.0); Imm Gran Abs Auto 0.04 X10*3/uL (0.00-0.03); Imm Gran Pct Auto 0.4 % (0.0-0.4); Lymphocytes Absolute Auto 2.8 X10*3/uL (1.2-4.9); Mean Corpuscular HGB Conc 34.2 g/dl (31.0-35.0); Mean Corpuscular Hemoglobin 29.8 pg (27.0-33.0); Mean Corpuscular Volume 87.2 fL (80.0-98.0); NRBC Abs Auto 0.000 X10*3/uL (0.0-0.012); NRBC Pct Auto 0.0 /100WBC (0.0-0.2); Platelet Count 340 X10*3/uL (160-400); Red Blood Count 3.99 X10*6/uL (4.20-5.50); White Blood Count 9.6 X10*3/uL (4.8-10.8)
[2025-02-09 12:07] LABS: Alanine Aminotransferase 19 U/L (0-31); Albumin Level 4.1 g/dL (3.5-5.0); Alkaline Phosphatase 64 U/L (39-117); Anion Gap 11 (12-20); Aspartate Amino Transferase 26 U/L (5-31); Blood Urea Nitrogen 11 mg/dL (9-16); Calcium 8.5 mg/dL (8.4-10.2); Carbon Dioxide 23 mmol/L (22-29); Chloride 108 mmol/L (96-108); Cholesterol 149 mg/dL (<200); Estimated Glomerular Filt Rate > 60; HDL Cholesterol 39 mg/dL (>40); Potassium 3.7 mmol/L (3.3-5.1); Sodium 138 mmol/L (135-145); Total Protein 7.4 g/dL (6.5-8.0); Triglycerides 80 mg/dL (<150)
[2025-02-09 12:23] LABS: HBS Num1 3.06 mIU/mL (0-7.99); HBc Num1 0.19 S/CO (0.00-0.79); HBsAGNum1 0.37 S/CO (0.00-0.99); Hepatitis A Antibody IgM 0.21 Index (0-0.79); Hepatitis B Surface Antigen Negative (Negative); ~HepC Num1 0.14 S/CO (0.00-0.79); ~Hepatitis A Antibody IgM Nonreactive (Nonreactive); ~Hepatitis B Surface Antibody NONREACTIVE (Nonreactive); ~Hepatitis C Antibody Nonreactive (Nonreactive)
[2025-02-09 13:02] LABS: Reflex LDLD? No
== END 2025-02-09 08:56 | disposition home or self-care (01) ==
LOC: HO.HHCL 08:55
PROVIDERS: PCP Internal Medicine; Visit Provider Internal Medicine
DX: Z11.59 Encounter for screening for other viral diseases (principal); E66.811 Obesity, class 1; L30.1 Dyshidrosis [pompholyx]; Z68.31 Body mass index [BMI] 31.0-31.9, adult
CPT/HCPCS: 36415; 80053; 80061; 84443; 85025; 86704; 86706; 86709; 86803; 87340